=== PATIENT | female | born 2000 | race Two or more races ===

== ENCOUNTER 2021-08-24 22:39 | Emergency (ER) | payer OTHER ==
[~2021-08-24] VITALS: Ht 165.1 cm; Wt 96.2 kg
[2021-08-24] MEDS ORDERED: MUPIROCIN1 G1 TOP (23:15)
[2021-08-24] MEDS ORDERED: DUI500 PO (23:15)
[2021-08-24] MEDS ORDERED: HIBICLENS118 ML TOP (23:15)
== END 2021-08-24 23:30 | disposition home or self-care (01) ==
LOC: ER 22:39
DX: L03.115 Cellulitis of right lower limb (principal)

== ENCOUNTER → 2024-01-08 | Emergency (ER) | payer OTHER ==
[~2024-01-08] VITALS: Ht 167.6 cm; Wt 117.9 kg
[~2024-01-08] MED LIST: DUI500 PO; HIBICLENS118 ML TOP; MUPIROCIN1 G1 TOP
== END | disposition left against medical advice (07) ==
LOC: ER 19:07
DX: Z53.21 Procedure and treatment not carried out due to patient leaving prior to being seen by health care provider (principal)